=== PATIENT | female | born 1955 | race Caucasian/White ===

== ENCOUNTER 2018-12-23 12:45 | Day surgery (SDC) | payer BC, MEDICARE ==
[2018-12-23 12:57] VITALS: BP 135/67; RESP 16; TEMP 97.7
[2018-12-23 14:08] VITALS: PULSE 81
--- NOTE | 2018-12-23 15:26 | US ---
ULTRASOUND GUIDED FNA THYROID BIOPSY: CLINICAL HISTORY: 1.4 cm right thyroid nodule and 1.1 cm right thyroid nodule FINDINGS: The procedure was explained to the patient. The risks, complications, benefits and alternatives were discussed and any questions were answered. Informed consent was obtained. Patient was placed supin e on the ultrasound table and prepped and draped in the usual sterile fashion. Utilizing a 25 gauge needle, five passes were made into the 1.4 centimeter right thyroid nodule. Patient deferred biopsy of the 1.1 cm nodule. Patient was stable throughout the procedure. Pathology is pending. All elements of maximal barrier technique were utilized. IMPRESSION: 1. Successful ultrasound guided FNA thyroid biopsy 1.4 cm right thyroid nodule. The patient deferred biopsy of the 1.1 cm right thyroid nodule which could be followed with short-term follow-up ultrasou nd.
== END 2018-12-23 14:15 | disposition home or self-care (01) ==
LOC: RADPROMAIN 12:45
PROVIDERS: ATTEND Otolaryngology Plastic Surgery within the Head & Neck
DX: E04.2 Nontoxic multinodular goiter (principal)
CPT/HCPCS: 10005; 88173; 88305